=== PATIENT | male | born 2000 | race Caucasian/White ===

== ENCOUNTER 2022-03-04 07:54 | Emergency (ER) | payer SELFPAY ==
[~2022-03-04] VITALS: Ht 172.7 cm; Wt 68.0 kg
[2022-03-04 07:59] VITALS: BP 109/57
== END 2022-03-04 09:30 | disposition left against medical advice (07) ==
LOC: ER 07:54
DX: Z00.00 Encounter for general adult medical examination without abnormal findings (principal)
CPT/HCPCS: 99283